=== PATIENT | female | born 1975 | race Caucasian/White ===

== ENCOUNTER 2017-11-01 19:12 | Emergency (ER) | payer OTHER ==
[~2017-11-01 19:12] MED LIST: Z.0.NO CURRENT MEDS
[2017-11-01 21:13] VITALS: BP 187/107; PULSE 105; RESP 18; TEMP 98.7; O2SAT 98
--- NOTE | 2017-11-01 21:58 | PD ---
HPI Chief Complaint: Psychiatric Symptoms Time Seen by Provider: 21:39 Travel History International Travel<30 days: No Contact w/Intl Traveler<30days: No Traveled to known affect area: No History of Present Illness HPI 42-year-old white female presents emergency department with her cousin and best friend for evaluation of alcohol abuse. The patient has had relationship problems with her girlfriend in [facility]. She had come up to stay with her best friend over the last 4 days and has been consuming large amounts of alcohol. She denies any suicidal or homicidal ideation and no toxic ingestions. She denies any alcohol abuse. She has not been eating because she was been drinking so much. Family and friends are concerned in regards to her alcohol ingestion. The patient here denies wanting to be evaluated. She does not want to see a psychiatrist. She does not feel that she is an alcoholic and needs detox. She does admit to feeling depressed about her relationship but she does not feel suicidal or homicidal. PFSH Past Medical History Tetanus Vaccination: < 5 Years ?: Not Past Surgical History Narrative Surgical Gastric bypass, partial hysterectomy Abdominal Surgery: Yes (gastric bypass) Hysterectomy: Yes (partial) Social History Alcohol Use: Yes Tobacco Use: No Substance Use: No Allergies-Medications (Allergen,Severity, Reaction): Coded Allergies: No Known Allergies (Unverified Adverse Reaction, Unknown, 11/01/17) Reported Meds & Prescriptions Reported Meds & Active Scripts Active No Active Prescriptions or Reported Medications Review of Systems General / Constitutional: No: Fever Eyes: No: Visual changes HENT: No: Headaches Cardiovascular: No: Chest Pain or Discomfort Respiratory: No: Shortness of Breath Gastrointestinal: No: Abdominal Pain Genitourinary: No: Dysuria Musculoskeletal: No: Pain Skin: No Rash Neurologic: No: Weakness Psychiatric: Positive: Mood Disorder, No: Anxiety, Depression, Suicidal Ideations, Disorder of Thought, Substance Abuse, Homicidal Ideation Endocrine: No: Polydipsia Hematologic/Lymphatic: No: Easy Bruising Physical Exam Narrative GENERAL: Well-nourished, well-developed patient. SKIN: Warm and dry. HEAD: Normocephalic and atraumatic. EYES: No scleral icterus. No injection or drainage. ENT: No nasal drainage noted. Mucous membranes pink. Airway patent. NECK: Supple, trachea midline. Moves head freely without obvious discomfort. CARDIOVASCULAR: Regular rate and rhythm without murmurs, gallops, or rubs. RESPIRATORY: Breath sounds equal bilaterally. No accessory muscle use. GASTROINTESTINAL: Abdomen soft, non-tender, nondistended. EXTREMITIES: No cyanosis or edema. BACK: Nontender without obvious deformity. No CVA tenderness. NEURO: Patient is alert and oriented. no sensorimotor deficits. Nonfocal. Normal speech. PSYCH: No delusions. No auditory or visual hallucinations. Data Data Last Documented VS Vital Signs Date Time Temp Pulse Resp B/P (MAP) Pulse Ox O2 Delivery O2 Flow Rate FiO2 11/01/17 21:13 98.7 105 18 187/107 (133) 98 MDM Medical Decision Making Medical Screen Exam Complete: Yes Emergency Medical Condition: Yes Medical Record Reviewed: Yes Differential Diagnosis Differential diagnoses: Alcohol intoxication, substance abuse, electrolyte abnormality, malingering Narrative Course The patient denies wanting to see a psychiatrist or get into alcohol detox. I have discussed EXPARTE with the family and friend. This is adjustment reaction with depressed mood, alcohol abuse. The patient has opted to leave. She is not a risk to herself or others. She is not a candidate for a Gerardo act at this time. The patient has declined outpatient treatment information here in the [facility] area. She states that she will call her insurance company and go back to [facility] to seek further help. This is confirmed by the friends and family who are in agreement today. Diagnosis Primary Impression: Reaction, adjustment, with depressed mood, brief Additional Impression: Alcohol abuse Patient Instructions: General Instructions Additional Instructions: Rest. Call your insurance company today to see if there is any outpatient treatment options for you. If you decide to get assistance you may return to the ER for evaluation. Med/Other Pt SpecificInfo: No Meds Exist/No RX given Scripts No Active Prescriptions or Reported Meds Disposition: 01 DISCHARGE HOME Condition: Stable Daniel Shay November 01, 2017 21:58
== END 2017-11-01 22:16 | disposition home or self-care (01) ==
LOC: NEPD 19:12
DX: F43.21 Adjustment disorder with depressed mood (principal); F10.10 Alcohol abuse, uncomplicated
CPT/HCPCS: 99282